=== PATIENT | female | born 1955 | race Caucasian/White ===

== ENCOUNTER 2020-02-24 20:49 | Inpatient (IN) | payer MEDICARE ==
[2020-02-24 21:24] LABS: #Eosinphils 0.1 thou/uL (0.0-0.7); #Lymphocytes 1.4 thou/uL (1.20-3.40); #Monocytes 0.5 thou/uL (0.11-0.59); %Basophils 0.3 % (0.0-1.0); %Eosinophils 1.8 % (0.0-10.0); %Lymphocytes 19.7 % (21.0-51.0); %Monocytes 6.6 % (0.0-10.0); %Neutrophils 71.5 % (42.0-75.0); Mean Corpuscular HGB CONC 33.8 g/dL (32.0-36.0); Mean Corpuscular Hemoglobin 28.7 pg (27.0-31.0); Mean Corpuscular Volume 85.1 fL (78.0-98.0); Mean Platelet Volume 8.3 fL (7.4-10.4); Platelet Count 151 thou/uL (130-400); RBC Distribution Width 12.5 % (11.5-14.5); Red Blood Cell (RBC) Count 4.89 mill/uL (4.20-5.40)
[2020-02-24 21:46] LABS: ALT (SGPT) 35 U/L (8-55); AST (SGOT) 41 U/L (5-34); Albumin 4.1 g/dL (3.4-4.8); Alkaline Phosphatase 101 U/L (40-110); Anion Gap 17 mmol/L (10-20); BUN (Urea Nitrogen) 13 mg/dL (9.8-20.1); Bilirubin, Total 0.8 mg/dL (0.2-1.2); Calc. Creatinine Clearance 0 mL/min (70-130); Calcium 9.4 mg/dL (7.8-10.44); Carbon Dioxide 19 mmol/L (23-31); Chloride 110 mmol/L (98-107); Globulin 3.9 g/dL (2.4-3.5); Glucose 167 mg/dL (80-115); Lipase 92 U/L (8-78); Potassium 4.4 mmol/L (3.5-5.1); Sodium 142 mmol/L (136-145)
[2020-02-24 22:03] LABS: Bacteria/HPF None Seen HPF (None Seen); Bilirubin Negative (Negative); Blood, Urine Negative (Negative); Clarity Clear (Clear); Glucose, Urine (Dipstick) Normal (Negative); Ketone, Urine Negative (Negative); Leukocyte 25 Leu/uL (Negative); Nitrite Negative (Negative); Protein, Urine (Dipstick) 10 mg/dL (Neg-Trace); RBC/HPF 0-3 HPF (0-3); Specific Gravity, Urine 1.023 (1.002-1.036); Squamous Epithelial 0-3 HPF (0-3); Urobilinogen Normal mg/dL (Less than 2); pH, Urine 5.5 (5.0-9.0)
[2020-02-25] MEDS ORDERED: Ondansetron PF 4 MG/2 ML Vial ONE (00:40)
[2020-02-25] MEDS ORDERED: Fentanyl 100 MCG/2 ML VIAL ONE ×2 (00:40→05:26)
[2020-02-25] MEDS ORDERED: Sucralfate 1 GM/10 ML UDCUP ONE (02:11)
[2020-02-25] MEDS ORDERED: Morphine 4 MG/ML VIAL ONE (03:36)
[2020-02-25 05:01] LABS: CO2 Tension 28.5 mmHg (35.0-45.0); O2 Tension (PaO2), arterial 422.8 mmHg (> 80.0); pH, Arterial 7.37 (7.35-7.45)
[2020-02-25 05:02] LABS: Actual Bicarbonate (HCO3a) 15.9 mEq/L (22-28); Base Excess (BEa) -7.9 mEq/L (-2.0 to +3.0); Carboxyhemoglobin (COHb) 0.3 gm% (0.0-3.0); Hemoglobin (Hb) 14.6 g/dL (12.0-16.0); Potassium - ABG Lab 3.23 mmol/L (3.70-5.30)
[2020-02-25 05:03] LABS: ALV-art Gradient 254.575 mmHg (0-20); Analyzer IN Cardio ER; Calcium, Ionized (arterial) 1.41 mmol/L (1.12-1.30); Puncture Site LRA
[2020-02-25 05:17] LABS: INR-International Normal Ratio 1.3; PTT 29.7 sec (22.9-36.1); Prothrombin Time 16.3 sec (12.0-14.7)
[2020-02-25] MEDS ORDERED: Midazolam HCl 2 mg/2 ml Vial ONE ×2 (05:26→05:37)
[2020-02-25 05:34] LABS: ALT (SGPT) 35 U/L (8-55); AST (SGOT) 45 U/L (5-34); Albumin 3.6 g/dL (3.4-4.8); Alkaline Phosphatase 101 U/L (40-110); Anion Gap 23 mmol/L (10-20); BUN (Urea Nitrogen) 16 mg/dL (9.8-20.1); CK (CPK) 90 U/L (29-168); Calc. Creatinine Clearance 0 mL/min (70-130); Calcium 10.9 mg/dL (7.8-10.44); Carbon Dioxide 15 mmol/L (23-31); Chloride 108 mmol/L (98-107); Globulin 3.6 g/dL (2.4-3.5); Glucose 238 mg/dL (80-115); Potassium 3.2 mmol/L (3.5-5.1); Protein, Total 7.2 g/dL (6.0-8.3); Sodium 143 mmol/L (136-145)
[2020-02-25] MEDS ORDERED: Metoprolol Tartrate 5 MG/5 ML VIAL ONE (05:43)
[2020-02-25] MEDS ORDERED: Nitroglycerin 100MG/250ML BOT 250 ML ONE (05:49)
[2020-02-25 06:04] LABS: Band 10 % (5-11); Eosinophils 2 % (0-10); Hemoglobin 13.8 g/dL (12.0-16.0); Lymphocytes 39 % (21-51); MDiff Complete? YES; Mean Corpuscular HGB CONC 33.6 g/dL (32.0-36.0); Mean Corpuscular Volume 86.1 fL (78.0-98.0); Mean Platelet Volume 8.8 fL (7.4-10.4); Monocytes 10 % (0-10); Neutrophil 39 % (42-75); Platelet Count 247 thou/uL (130-400); RBC Distribution Width 12.8 % (11.5-14.5); Red Blood Cell (RBC) Count 4.75 mill/uL (4.20-5.40); White Blood Cell (WBC) Count 17.4 thou/uL (4.8-10.8)
[2020-02-25] MEDS ORDERED: Propofol 500 MG/50 ML VIAL ONE (08:43)
[2020-02-25] MEDS ORDERED: Propofol 1,000 MG/100 ML VIAL IV ONE (08:44)
[2020-02-25 08:51] LABS: Actual Bicarbonate (HCO3a) 18.4 mEq/L (22-28); Base Excess (BEa) -4.2 mEq/L (-2.0 to +3.0); CO2 Tension 27.3 mmHg (35.0-45.0); Calcium, Ionized (arterial) 1.17 mmol/L (1.12-1.30); Carboxyhemoglobin (COHb) 0.5 gm% (0.0-3.0); O2 Tension (PaO2), arterial 115.6 mmHg (> 80.0); pH, Arterial 7.45 (7.35-7.45)
[2020-02-25 09:22] LABS: CKMB 7.6 ng/mL (0-6.6)
[2020-02-25 10:06] LABS: ALV-art Gradient 135.475 mmHg (0-20); Puncture Site Arterial Line
[2020-02-25] MEDS ORDERED: Iopamidol 370 76% 100 ML VIAL ONE (10:23)
[2020-02-25] MEDS ORDERED: Iopamidol-370 76% 500 ML 1 ML ONE (10:54)
[2020-02-25] MEDS: Lorazepam 2 MG/ML VIAL SLOW IVP PRN ×5 (11:34→21:53)
[2020-02-25] MEDS ORDERED: Vecuronium 10 MG VIAL ONE (11:54)
[2020-02-25] MEDS: Morphine 2 MG/ML VIAL SLOW IVP PRN (11:55)
[2020-02-25] MEDS ORDERED: Fentanyl BOLUS 250 ML IVPB PRN (12:00)
[2020-02-25] MEDS ORDERED: DISCONTINUE PREVIOUS NARCOTIC PAIN MEDICATIONS AND BENZODIAZEPINES FS SCH (12:00)
[2020-02-25] MEDS ORDERED: Fentanyl CADD 100 ML IV SCH (12:00)
[2020-02-25] MEDS ORDERED: Propofol BOLUS 1,000 MG/100 ML VIAL IV PRN (12:00)
[2020-02-25] MEDS: niCARdipine 25 MG in Sodium Chloride 0.9% 250 ML 240 ML IVPB SCH ×2 (12:19→18:05)
[2020-02-25] MEDS ORDERED: Heparin 10,000 UNITS/ 10 ML VIAL ONE (12:40)
[2020-02-25] MEDS ORDERED: Calcium Chloride 1 GM/10 ML Abboject SYRINGE ONE (13:14)
[2020-02-25] MEDS ORDERED: Naloxone HCl 0.4 mg/ml Vial ONE (13:14)
[2020-02-25] MEDS ORDERED: EPINEPHrine 1 MG/10 ML Abboject SYRINGE ONE (13:14)
[2020-02-25] MEDS ORDERED: Sodium Bicarb 50 MEQ/50 ML Abboject 8.4% SYRINGE ONE (13:14)
[2020-02-25 13:18] LABS: Amphetamine Not Detected (NotDetected); Barbiturates Screen Not Detected (NotDetected); Benzodiazepine Screen Not Detected (NotDetected); Cocaine Metabolite Screen Not Detected (NotDetected); Medtox Control Line Valid? VALID (VALID); Medtox Reader # READER 4; Methadone Not Detected (NotDetected); Methamphetamine Not Detected (NotDetected); Opiate Screen Detected (NotDetected); Oxycodone Screen Detected (NotDetected); Phencyclidine (PCP) Not Detected (NotDetected); THC/Cannabinoid Screen Not Detected (NotDetected); Tricyclic Screen Detected (NotDetected)
[2020-02-25 13:27] VITALS: BMI 22.2
[2020-02-25] MEDS: Propofol 1,000 MG/100 ML VIAL IV PRN ×2 (14:17→21:49)
[2020-02-25] MEDS: Vecuronium 10 MG VIAL IV PRN ×3 (15:55→21:53)
[2020-02-25 15:58] LABS: SARS-CoV-2 PCR by NAA Not Detected (NotDetected)
[2020-02-25] MEDS ORDERED: Enoxaparin Sodium 40 MG/0.4 ML SYRINGE SC SCH (17:00)
[2020-02-25] MEDS ORDERED: Famotidine/PF 20 mg/2ml Vial SLOW IVP SCH ×2 (17:00→21:00)
[2020-02-25] MEDS: Piperacillin/Tazobactam 3.375 GM in Sodium Chloride 0.9% 100 ML IVPB SCH (17:30)
[2020-02-25 18:10] LABS: #Basophils 0.1 thou/uL (0.0-0.2); #Lymphocytes 1.5 thou/uL (1.20-3.40); #Monocytes 0.8 thou/uL (0.11-0.59); #Neutrophils 12.8 thou/uL (1.40-6.50); %Basophils 0.4 % (0.0-1.0); %Eosinophils 0.1 % (0.0-10.0); %Lymphocytes 9.6 % (21.0-51.0); %Monocytes 5.2 % (0.0-10.0); %Neutrophils 84.7 % (42.0-75.0); Hemoglobin 14.3 g/dL (12.0-16.0); Mean Corpuscular HGB CONC 33.8 g/dL (32.0-36.0); Mean Corpuscular Hemoglobin 28.7 pg (27.0-31.0); Mean Corpuscular Volume 84.9 fL (78.0-98.0); Mean Platelet Volume 8.5 fL (7.4-10.4); Platelet Count 196 thou/uL (130-400); RBC Distribution Width 12.9 % (11.5-14.5); Red Blood Cell (RBC) Count 4.99 mill/uL (4.20-5.40); White Blood Cell (WBC) Count 15.2 thou/uL (4.8-10.8)
[2020-02-25 18:16] LABS: INR-International Normal Ratio 1.2; PTT 32.6 sec (22.9-36.1); Prothrombin Time 15.2 sec (12.0-14.7)
[2020-02-25 18:40] LABS: Anion Gap 19 mmol/L (10-20); BUN (Urea Nitrogen) 15 mg/dL (9.8-20.1); Calc. Creatinine Clearance 46 mL/min (70-130); Calcium 9.1 mg/dL (7.8-10.44); Carbon Dioxide 16 mmol/L (23-31); Chloride 108 mmol/L (98-107); Glucose 262 mg/dL (80-115); Lactic Acid 4.7 mmol/L (0.5-2.2); Magnesium 1.7 mg/dL (1.6-2.6); Potassium 3.8 mmol/L (3.5-5.1); Sodium 139 mmol/L (136-145)
[2020-02-25] MEDS ORDERED: Sodium Chloride 0.9% 500 ML IV SCH (18:45)
[2020-02-25 19:26] LABS: CKMB 15.6 ng/mL (0-6.6)
[2020-02-25 22:41] LABS: Lactic Acid 2.8 mmol/L (0.5-2.2)
[2020-02-26] MEDS: Piperacillin/Tazobactam 3.375 GM in Sodium Chloride 0.9% 100 ML IVPB SCH ×3 (01:04→17:30)
[2020-02-26] MEDS: niCARdipine 25 MG in Sodium Chloride 0.9% 250 ML 240 ML IVPB SCH (01:04)
[2020-02-26 01:27] LABS: Hemoglobin 14.5 g/dL (12.0-16.0); Mean Corpuscular HGB CONC 34.6 g/dL (32.0-36.0); Mean Corpuscular Hemoglobin 29.2 pg (27.0-31.0); Mean Corpuscular Volume 84.2 fL (78.0-98.0); Mean Platelet Volume 7.9 fL (7.4-10.4); Platelet Count 262 thou/uL (130-400); RBC Distribution Width 12.8 % (11.5-14.5); Red Blood Cell (RBC) Count 4.95 mill/uL (4.20-5.40); White Blood Cell (WBC) Count 20.4 thou/uL (4.8-10.8)
[2020-02-26 01:31] LABS: INR-International Normal Ratio 1.2; Prothrombin Time 15.2 sec (12.0-14.7)
[2020-02-26 01:44] LABS: Anion Gap 16 mmol/L (10-20); BUN (Urea Nitrogen) 14 mg/dL (9.8-20.1); Calc. Creatinine Clearance 53 mL/min (70-130); Calcium 8.8 mg/dL (7.8-10.44); Carbon Dioxide 20 mmol/L (23-31); Chloride 109 mmol/L (98-107); Glucose 213 mg/dL (80-115); Magnesium 1.7 mg/dL (1.6-2.6); Potassium 3.3 mmol/L (3.5-5.1); Sodium 142 mmol/L (136-145)
[2020-02-26 02:02] LABS: Critical Call Chem Troponin I RESULT DECREASING
[2020-02-26 02:24] LABS: CKMB 21.4 ng/mL (0-6.6)
[2020-02-26 02:33] LABS: Band 9 % (5-11); Lymphocytes 12 % (21-51); MDiff Complete? YES; Monocytes 13 % (0-10); Neutrophil 66 % (42-75)
[2020-02-26] MEDS: Vecuronium 10 MG VIAL IV PRN (03:01)
[2020-02-26] MEDS: Lorazepam 2 MG/ML VIAL SLOW IVP PRN ×2 (03:01→15:33)
[2020-02-26] MEDS: Propofol 1,000 MG/100 ML VIAL IV PRN ×3 (05:52→23:25)
[2020-02-26 06:53] LABS: Actual Bicarbonate (HCO3a) 20.1 mEq/L (22-28); Base Excess (BEa) -3.6 mEq/L (-2.0 to +3.0); CO2 Tension 32.8 mmHg (35.0-45.0); Calcium, Ionized (arterial) 1.15 mmol/L (1.12-1.30); Carboxyhemoglobin (COHb) 0.9 gm% (0.0-3.0); Hemoglobin (Hb) 14.9 g/dL (12.0-16.0); O2 Tension (PaO2), arterial 74.6 mmHg (> 80.0); Potassium - ABG Lab 3.27 mmol/L (3.70-5.30); pH, Arterial 7.41 (7.35-7.45)
[2020-02-26 06:59] LABS: Puncture Site Arterial Line
[2020-02-26] MEDS ORDERED: Enoxaparin Sodium 40 MG/0.4 ML SYRINGE SC SCH (09:00)
[2020-02-26] MEDS: Enoxaparin Sodium 40 MG/0.4 ML SYRINGE SC SCH (09:09)
[2020-02-26] MEDS: Famotidine/PF 20 mg/2ml Vial SLOW IVP SCH ×2 (09:09→22:38)
[2020-02-26 09:37] LABS: #Basophils 0.1 thou/uL (0.0-0.2); #Eosinphils 0.1 thou/uL (0.0-0.7); #Lymphocytes 1.7 thou/uL (1.20-3.40); #Monocytes 1.2 thou/uL (0.11-0.59); #Neutrophils 12.5 thou/uL (1.40-6.50); %Basophils 0.5 % (0.0-1.0); %Eosinophils 0.5 % (0.0-10.0); %Monocytes 7.5 % (0.0-10.0); %Neutrophils 80.5 % (42.0-75.0); Hemoglobin 14.6 g/dL (12.0-16.0); Mean Corpuscular HGB CONC 33.7 g/dL (32.0-36.0); Mean Corpuscular Hemoglobin 28.4 pg (27.0-31.0); Mean Corpuscular Volume 84.3 fL (78.0-98.0); Platelet Count 199 thou/uL (130-400); RBC Distribution Width 12.8 % (11.5-14.5); Red Blood Cell (RBC) Count 5.13 mill/uL (4.20-5.40); White Blood Cell (WBC) Count 15.6 thou/uL (4.8-10.8)
[2020-02-26 09:54] LABS: Anion Gap 16 mmol/L (10-20); BUN (Urea Nitrogen) 14 mg/dL (9.8-20.1); Calc. Creatinine Clearance 57 mL/min (70-130); Calcium 8.8 mg/dL (7.8-10.44); Carbon Dioxide 19 mmol/L (23-31); Chloride 110 mmol/L (98-107); Glucose 193 mg/dL (80-115); Potassium 3.4 mmol/L (3.5-5.1); Sodium 142 mmol/L (136-145)
[2020-02-26] MEDS: Sodium Chloride 0.9% 1,000 ML IV SCH ×2 (10:00→22:36)
[2020-02-26 13:04] LABS: #Lymphocytes 1.7 thou/uL (1.20-3.40); #Monocytes 1.4 thou/uL (0.11-0.59); #Neutrophils 15.6 thou/uL (1.40-6.50); %Basophils 0.2 % (0.0-1.0); %Eosinophils 0.2 % (0.0-10.0); %Lymphocytes 8.9 % (21.0-51.0); %Monocytes 7.4 % (0.0-10.0); %Neutrophils 83.3 % (42.0-75.0); Hemoglobin 14.2 g/dL (12.0-16.0); Mean Corpuscular HGB CONC 34.3 g/dL (32.0-36.0); Mean Corpuscular Hemoglobin 28.7 pg (27.0-31.0); Mean Corpuscular Volume 83.8 fL (78.0-98.0); Mean Platelet Volume 7.9 fL (7.4-10.4); Platelet Count 243 thou/uL (130-400); RBC Distribution Width 12.9 % (11.5-14.5); Red Blood Cell (RBC) Count 4.93 mill/uL (4.20-5.40); White Blood Cell (WBC) Count 18.7 thou/uL (4.8-10.8)
[2020-02-26 13:26] LABS: Anion Gap 19 mmol/L (10-20); BUN (Urea Nitrogen) 12 mg/dL (9.8-20.1); Calc. Creatinine Clearance 53 mL/min (70-130); Calcium 8.5 mg/dL (7.8-10.44); Carbon Dioxide 18 mmol/L (23-31); Chloride 110 mmol/L (98-107); Glucose 163 mg/dL (80-115); Potassium 3.7 mmol/L (3.5-5.1); Sodium 143 mmol/L (136-145)
[2020-02-26 13:53] LABS: CKMB 22.6 ng/mL (0-6.6)
[2020-02-26] MEDS ORDERED: Amlodipine 10 MG TAB PO SCH (16:15)
[2020-02-26] MEDS: Vancomycin 1 GM in Premix Bag 1 BAG IVPB SCH (18:02)
[2020-02-27] MEDS: Piperacillin/Tazobactam 3.375 GM in Sodium Chloride 0.9% 100 ML IVPB SCH ×3 (01:41→17:18)
[2020-02-27 04:36] LABS: #Basophils 0.1 thou/uL (0.0-0.2); #Lymphocytes 2.2 thou/uL (1.20-3.40); #Monocytes 1.4 thou/uL (0.11-0.59); #Neutrophils 12.4 thou/uL (1.40-6.50); %Basophils 0.5 % (0.0-1.0); %Eosinophils 0.2 % (0.0-10.0); %Lymphocytes 13.8 % (21.0-51.0); %Monocytes 8.9 % (0.0-10.0); %Neutrophils 76.5 % (42.0-75.0); Mean Corpuscular HGB CONC 33.7 g/dL (32.0-36.0); Mean Corpuscular Hemoglobin 28.6 pg (27.0-31.0); Mean Corpuscular Volume 84.7 fL (78.0-98.0); Mean Platelet Volume 8.3 fL (7.4-10.4); Platelet Count 185 thou/uL (130-400); RBC Distribution Width 13.3 % (11.5-14.5); Red Blood Cell (RBC) Count 4.56 mill/uL (4.20-5.40); White Blood Cell (WBC) Count 16.2 thou/uL (4.8-10.8)
[2020-02-27] MEDS: Vancomycin 1 GM in Premix Bag 1 BAG IVPB SCH ×2 (06:46→18:13)
[2020-02-27] MEDS: Enoxaparin Sodium 40 MG/0.4 ML SYRINGE SC SCH (08:37)
[2020-02-27] MEDS: Famotidine/PF 20 mg/2ml Vial SLOW IVP SCH ×2 (08:37→20:36)
[2020-02-27] MEDS ORDERED: Amlodipine 10 MG TAB PO SCH (09:00)
[2020-02-27] MEDS: Propofol 1,000 MG/100 ML VIAL IV PRN (09:15)
[2020-02-27] MEDS ORDERED: Ibuprofen 600 MG TAB PER TUBE PRN (09:49)
[2020-02-27 10:02] LABS: Anion Gap 14 mmol/L (10-20); BUN (Urea Nitrogen) 15 mg/dL (9.8-20.1); Calc. Creatinine Clearance 53 mL/min (70-130); Carbon Dioxide 23 mmol/L (23-31); Chloride 110 mmol/L (98-107); Glucose 146 mg/dL (80-115); Potassium 3.8 mmol/L (3.5-5.1); Sodium 143 mmol/L (136-145)
[2020-02-27] MEDS: Sodium Chloride 0.9% 1,000 ML IV SCH ×2 (11:05→21:54)
[2020-02-27] MEDS: Labetalol HCl 100 MG/20 ML VIAL SLOW IVP PRN (20:35)
[2020-02-28] MEDS: Labetalol HCl 100 MG/20 ML VIAL SLOW IVP PRN (00:43)
[2020-02-28] MEDS: Piperacillin/Tazobactam 3.375 GM in Sodium Chloride 0.9% 100 ML IVPB SCH ×3 (00:47→16:27)
[2020-02-28] MEDS: Propofol 1,000 MG/100 ML VIAL IV PRN ×2 (01:51→18:44)
[2020-02-28 04:14] LABS: #Eosinphils 0.1 thou/uL (0.0-0.7); #Lymphocytes 2.1 thou/uL (1.20-3.40); #Monocytes 0.9 thou/uL (0.11-0.59); #Neutrophils 6.8 thou/uL (1.40-6.50); %Basophils 0.2 % (0.0-1.0); %Eosinophils 0.5 % (0.0-10.0); %Lymphocytes 21.4 % (21.0-51.0); %Monocytes 8.7 % (0.0-10.0); %Neutrophils 69.1 % (42.0-75.0); Hemoglobin 11.4 g/dL (12.0-16.0); Mean Corpuscular HGB CONC 33.7 g/dL (32.0-36.0); Mean Corpuscular Hemoglobin 28.6 pg (27.0-31.0); Mean Corpuscular Volume 84.9 fL (78.0-98.0); Mean Platelet Volume 8.4 fL (7.4-10.4); Platelet Count 124 thou/uL (130-400); RBC Distribution Width 12.9 % (11.5-14.5); White Blood Cell (WBC) Count 9.8 thou/uL (4.8-10.8)
[2020-02-28 05:36] LABS: Anion Gap 15 mmol/L (10-20); BUN (Urea Nitrogen) 16 mg/dL (9.8-20.1); Calc. Creatinine Clearance 58 mL/min (70-130); Calcium 8.3 mg/dL (7.8-10.44); Carbon Dioxide 22 mmol/L (23-31); Glucose 137 mg/dL (80-115); Potassium 3.7 mmol/L (3.5-5.1)
[2020-02-28 06:04] LABS: Chloride 109 mmol/L (98-107); Sodium 142 mmol/L (136-145)
[2020-02-28] MEDS: Vancomycin 1 GM in Premix Bag 1 BAG IVPB SCH ×2 (06:26→18:44)
[2020-02-28] MEDS: Enoxaparin Sodium 40 MG/0.4 ML SYRINGE SC SCH (09:14)
[2020-02-28] MEDS: Famotidine/PF 20 mg/2ml Vial SLOW IVP SCH ×2 (09:14→20:59)
[2020-02-28] MEDS: NIFEdipine XL 60 MG TAB PO SCH (09:14)
[2020-02-28] MEDS: Sodium Chloride 0.9% 1,000 ML IV SCH (15:02)
[2020-02-28 17:31] LABS: Vancomycin, Trough 16.6 ug/mL
[2020-02-28] MEDS: Morphine 2 MG/ML VIAL SLOW IVP PRN (23:35)
[2020-02-29] MEDS: Propofol 1,000 MG/100 ML VIAL IV PRN (01:03)
[2020-02-29] MEDS: Piperacillin/Tazobactam 3.375 GM in Sodium Chloride 0.9% 100 ML IVPB SCH ×3 (01:03→16:43)
[2020-02-29 04:29] LABS: #Basophils 0.1 thou/uL (0.0-0.2); #Eosinphils 0.1 thou/uL (0.0-0.7); #Lymphocytes 1.8 thou/uL (1.20-3.40); #Monocytes 0.7 thou/uL (0.11-0.59); #Neutrophils 6.7 thou/uL (1.40-6.50); %Basophils 0.6 % (0.0-1.0); %Eosinophils 1.1 % (0.0-10.0); %Lymphocytes 19.4 % (21.0-51.0); %Monocytes 7.9 % (0.0-10.0); Hemoglobin 11.5 g/dL (12.0-16.0); Mean Corpuscular Hemoglobin 27.2 pg (27.0-31.0); Mean Platelet Volume 8.3 fL (7.4-10.4); Platelet Count 127 thou/uL (130-400); RBC Distribution Width 12.8 % (11.5-14.5); Red Blood Cell (RBC) Count 4.24 mill/uL (4.20-5.40); White Blood Cell (WBC) Count 9.4 thou/uL (4.8-10.8)
[2020-02-29 05:28] LABS: Anion Gap 14 mmol/L (10-20); BUN (Urea Nitrogen) 17 mg/dL (9.8-20.1); Calc. Creatinine Clearance 66 mL/min (70-130); Calcium 8.7 mg/dL (7.8-10.44); Carbon Dioxide 22 mmol/L (23-31); Chloride 110 mmol/L (98-107); Glucose 103 mg/dL (80-115); Potassium 3.3 mmol/L (3.5-5.1); Sodium 143 mmol/L (136-145)
[2020-02-29] MEDS: Vancomycin 1 GM in Premix Bag 1 BAG IVPB SCH ×2 (05:36→17:31)
[2020-02-29] MEDS: Sodium Chloride 0.9% 1,000 ML IV SCH ×2 (06:20→23:23)
[2020-02-29] MEDS: Famotidine/PF 20 mg/2ml Vial SLOW IVP SCH (09:06)
[2020-02-29] MEDS: Enoxaparin Sodium 40 MG/0.4 ML SYRINGE SC SCH (09:06)
[2020-02-29] MEDS: NIFEdipine XL 60 MG TAB PO SCH (12:16)
[2020-02-29] MEDS: Famotidine 20 MG TAB PO SCH (20:57)
[2020-03-01] MEDS: Piperacillin/Tazobactam 3.375 GM in Sodium Chloride 0.9% 100 ML IVPB SCH ×3 (01:51→16:35)
[2020-03-01] MEDS: Sodium Chloride 0.9% 1,000 ML IV SCH ×2 (03:24→09:50)
[2020-03-01 04:28] LABS: Anion Gap 14 mmol/L (10-20); BUN (Urea Nitrogen) 17 mg/dL (9.8-20.1); Calc. Creatinine Clearance 73 mL/min (70-130); Carbon Dioxide 23 mmol/L (23-31); Chloride 109 mmol/L (98-107); Glucose 124 mg/dL (80-115); Potassium 3.2 mmol/L (3.5-5.1); Sodium 143 mmol/L (136-145)
[2020-03-01] MEDS: Vancomycin 1 GM in Premix Bag 1 BAG IVPB SCH ×3 (06:05→19:23)
[2020-03-01] MEDS ORDERED: Electrolyte Replacement Protocol 1 EACH FS SCH (09:00)
[2020-03-01] MEDS ORDERED: Potassium Chloride 20 MEQ TAB PO SCH (09:00)
[2020-03-01] MEDS ORDERED: Electrolyte Replacement Protocol FS PRN (09:15)
[2020-03-01] MEDS: Enoxaparin Sodium 40 MG/0.4 ML SYRINGE SC SCH (09:27)
[2020-03-01] MEDS: Famotidine 20 MG TAB PO SCH ×2 (09:27→20:37)
[2020-03-01] MEDS: NIFEdipine XL 60 MG TAB PO SCH (09:27)
[2020-03-01] MEDS ORDERED: Lisinopril 10 MG TAB PO SCH (12:30)
[2020-03-02] MEDS: Piperacillin/Tazobactam 3.375 GM in Sodium Chloride 0.9% 100 ML IVPB SCH ×4 (00:10→23:46)
[2020-03-02] MEDS: Vancomycin 1 GM in Premix Bag 1 BAG IVPB SCH ×2 (04:25→19:13)
[2020-03-02 05:03] LABS: #Eosinphils 0.2 thou/uL (0.0-0.7); #Lymphocytes 1.5 thou/uL (1.20-3.40); #Monocytes 0.9 thou/uL (0.11-0.59); #Neutrophils 4.4 thou/uL (1.40-6.50); %Basophils 0.6 % (0.0-1.0); %Eosinophils 2.5 % (0.0-10.0); %Lymphocytes 20.9 % (21.0-51.0); %Monocytes 13.4 % (0.0-10.0); %Neutrophils 62.6 % (42.0-75.0); Mean Corpuscular HGB CONC 32.4 g/dL (32.0-36.0); Mean Corpuscular Hemoglobin 27.4 pg (27.0-31.0); Mean Corpuscular Volume 84.7 fL (78.0-98.0); Mean Platelet Volume 8.6 fL (7.4-10.4); Platelet Count 163 thou/uL (130-400); RBC Distribution Width 12.9 % (11.5-14.5); Red Blood Cell (RBC) Count 4.39 mill/uL (4.20-5.40)
[2020-03-02 05:29] LABS: Anion Gap 14 mmol/L (10-20); BUN (Urea Nitrogen) 16 mg/dL (9.8-20.1); Calc. Creatinine Clearance 75 mL/min (70-130); Calcium 9.2 mg/dL (7.8-10.44); Carbon Dioxide 22 mmol/L (23-31); Chloride 108 mmol/L (98-107); Glucose 115 mg/dL (80-115); Potassium 3.4 mmol/L (3.5-5.1); Sodium 141 mmol/L (136-145)
[2020-03-02] MEDS ORDERED: Potassium Chloride 20 MEQ TAB PO SCH (06:45)
[2020-03-02] MEDS ORDERED: CEFAZOLIN 1 GM VIAL ONE (09:26)
[2020-03-02] MEDS ORDERED: Gentamicin 80 MG/2 ML VIAL ONE (09:26)
[2020-03-02] MEDS ORDERED: Promethazine HCl 25 MG/ML VIAL SLOW IVP PRN (10:01)
[2020-03-02] MEDS ORDERED: Promethazine HCl 25 MG/ML VIAL IM PRN (10:01)
[2020-03-02] MEDS ORDERED: Ondansetron HCl/PF 4 MG/2 ML Vial IVP PRN (10:01)
[2020-03-02] MEDS ORDERED: Propofol 1,000 MG/100 ML VIAL IV ONE (10:03)
[2020-03-02] MEDS ORDERED: PROPOFOL 200 MG/20 ML VIAL ONE (10:11)
[2020-03-02] MEDS ORDERED: Lidocaine 1% PF 5 ML VIAL ONE (10:11)
[2020-03-02] MEDS ORDERED: Acetaminophen/Codeine 30-300mg Tablet PO PRN ×2 (12:15)
[2020-03-02] MEDS: NIFEdipine XL 60 MG TAB PO SCH (12:16)
[2020-03-02] MEDS: Famotidine 20 MG TAB PO SCH ×2 (12:17→21:12)
[2020-03-02] MEDS: Lisinopril 10 MG TAB PO SCH (12:17)
[2020-03-02] MEDS ORDERED: Iopamidol 370 76% 50 ML VIAL FS ONE (14:50)
[2020-03-02] MEDS ORDERED: Lorazepam 2 MG/ML VIAL SLOW IVP SCH ×2 (15:45→21:00)
[2020-03-02 17:32] LABS: Vancomycin, Trough 17.8 ug/mL
[2020-03-03 05:02] LABS: Anion Gap 16 mmol/L (10-20); BUN (Urea Nitrogen) 16 mg/dL (9.8-20.1); Calc. Creatinine Clearance 75 mL/min (70-130); Calcium 9.1 mg/dL (7.8-10.44); Carbon Dioxide 22 mmol/L (23-31); Chloride 108 mmol/L (98-107); Glucose 116 mg/dL (80-115); Potassium 4.2 mmol/L (3.5-5.1); Sodium 142 mmol/L (136-145)
[2020-03-03] MEDS: Vancomycin 1 GM in Premix Bag 1 BAG IVPB SCH (05:42)
[2020-03-03] MEDS ORDERED: QUETIAPINE FUMARATE 400 MG PO SCH (09:00)
[2020-03-03] MEDS: Piperacillin/Tazobactam 3.375 GM in Sodium Chloride 0.9% 100 ML IVPB SCH (09:24)
[2020-03-03] MEDS: NIFEdipine XL 60 MG TAB PO SCH (09:26)
[2020-03-03] MEDS: Lisinopril 10 MG TAB PO SCH (09:27)
[2020-03-03] MEDS: Famotidine 20 MG TAB PO SCH ×2 (09:28→20:35)
[2020-03-03] MEDS ORDERED: Clindamycin 150 MG CAP PO SCH (11:45)
[2020-03-03] MEDS: HYDROcodone/Acetaminophen 10/325 mg Tablet PO PRN (16:39)
[2020-03-03] MEDS: Doxycycline 100 MG CAP PO SCH (20:35)
[2020-03-03] MEDS: Cefdinir 300 MG CAP PO SCH (20:35)
[2020-03-04 05:43] LABS: Anion Gap 18 mmol/L (10-20); BUN (Urea Nitrogen) 35 mg/dL (9.8-20.1); Calc. Creatinine Clearance 29 mL/min (70-130); Calcium 9.3 mg/dL (7.8-10.44); Carbon Dioxide 14 mmol/L (23-31); Chloride 110 mmol/L (98-107); Glucose 115 mg/dL (80-115); Potassium 4.3 mmol/L (3.5-5.1); Sodium 138 mmol/L (136-145)
[2020-03-04] MEDS: Cefdinir 300 MG CAP PO SCH ×2 (08:13→20:09)
[2020-03-04] MEDS: Famotidine 20 MG TAB PO SCH (08:14)
[2020-03-04] MEDS: Mirtazapine 15 MG TAB PO SCH (08:14)
[2020-03-04] MEDS: NIFEdipine XL 60 MG TAB PO SCH (08:14)
[2020-03-04] MEDS: Doxycycline 100 MG CAP PO SCH ×2 (08:16→20:09)
[2020-03-04] MEDS: Lisinopril 10 MG TAB PO SCH (08:16)
[2020-03-04 12:34] LABS: Anion Gap 16 mmol/L (10-20); BUN (Urea Nitrogen) 37 mg/dL (9.8-20.1); Calc. Creatinine Clearance 26 mL/min (70-130); Calcium 9.2 mg/dL (7.8-10.44); Carbon Dioxide 19 mmol/L (23-31); Chloride 106 mmol/L (98-107); Glucose 153 mg/dL (80-115); Potassium 3.5 mmol/L (3.5-5.1); Sodium 137 mmol/L (136-145)
[2020-03-04] MEDS ORDERED: Potassium Chloride 20 MEQ TAB PO SCH (14:00)
[2020-03-04] MEDS: Heparin 5,000 UNITS/ML VIAL SC SCH ×2 (14:16→20:11)
[2020-03-04 16:53] LABS: Bilirubin Negative (Negative); Blood, Urine Negative (Negative); Clarity Clear (Clear); Glucose, Urine (Dipstick) Normal (Negative); Ketone, Urine Negative (Negative); Leukocyte Negative Leu/uL (Negative); Nitrite Negative (Negative); Protein, Urine (Dipstick) 20 mg/dL (Neg-Trace); RBC/HPF 0-3 HPF (0-3); Specific Gravity, Urine 1.015 (1.002-1.036); Urobilinogen Normal mg/dL (Less than 2); WBC/HPF 0-3 HPF (0-3); Yeast-Budding 2+ HPF (None Seen); pH, Urine 5.5 (5.0-9.0)
[2020-03-04 16:55] LABS: Bacteria/HPF 1+ HPF (None Seen); Urine Culture Reflex No No
[2020-03-04 17:08] LABS: Creatinine, Urine 78.03 mg/dL (47-110)
[2020-03-04] MEDS: Sodium Bicarbonate Tab 325 MG TAB PO SCH (20:10)
[2020-03-05 05:12] LABS: Albumin 3.4 g/dL (3.4-4.8); Phosphorus 4.3 mg/dL (2.3-4.7)
[2020-03-05 05:13] LABS: Anion Gap 17 mmol/L (10-20); BUN (Urea Nitrogen) 37 mg/dL (9.8-20.1); Calc. Creatinine Clearance 22 mL/min (70-130); Carbon Dioxide 19 mmol/L (23-31); Chloride 109 mmol/L (98-107); Glucose 107 mg/dL (80-115); Magnesium 2.1 mg/dL (1.6-2.6); Potassium 4.4 mmol/L (3.5-5.1); Sodium 141 mmol/L (136-145)
[2020-03-05] MEDS: Doxycycline 100 MG CAP PO SCH ×2 (09:11→20:56)
[2020-03-05] MEDS: Cefdinir 300 MG CAP PO SCH (09:11)
[2020-03-05] MEDS: NIFEdipine XL 60 MG TAB PO SCH (09:14)
[2020-03-05] MEDS: Mirtazapine 15 MG TAB PO SCH (09:15)
[2020-03-05] MEDS: Sodium Bicarbonate Tab 325 MG TAB PO SCH ×3 (09:16→20:57)
[2020-03-05] MEDS: Heparin 5,000 UNITS/ML VIAL SC SCH ×3 (09:17→20:57)
[2020-03-05] MEDS ORDERED: Sodium Chloride 0.9% 1,000 ML IV SCH (09:30)
[2020-03-05] MEDS: HYDROcodone/Acetaminophen 10/325 mg Tablet PO PRN (13:01)
[2020-03-05] MEDS ORDERED: Sodium Bicarbonate 50 MEQ in Sodium Chloride 0.45% 1,000 ML IV SCH (15:30)
[2020-03-06 05:15] LABS: Anion Gap 17 mmol/L (10-20); BUN (Urea Nitrogen) 39 mg/dL (9.8-20.1); CK (CPK) 44 U/L (29-168); Calc. Creatinine Clearance 21 mL/min (70-130); Carbon Dioxide 20 mmol/L (23-31); Chloride 107 mmol/L (98-107); Glucose 105 mg/dL (80-115); Potassium 3.9 mmol/L (3.5-5.1); Sodium 140 mmol/L (136-145)
[2020-03-06] MEDS: NIFEdipine XL 60 MG TAB PO SCH (08:56)
[2020-03-06] MEDS: Doxycycline 100 MG CAP PO SCH ×2 (08:56→21:12)
[2020-03-06] MEDS: Mirtazapine 15 MG TAB PO SCH (08:56)
[2020-03-06] MEDS: Sodium Bicarbonate Tab 325 MG TAB PO SCH ×3 (08:56→21:11)
[2020-03-06] MEDS: Cefdinir 300 MG CAP PO SCH (08:57)
[2020-03-06] MEDS ORDERED: predniSONE 20 MG TAB PO SCH (09:45)
[2020-03-06 13:50] LABS: #Basophils 0.1 thou/uL (0.0-0.2); #Eosinphils 0.1 thou/uL (0.0-0.7); #Lymphocytes 0.6 thou/uL (1.20-3.40); #Monocytes 0.2 thou/uL (0.11-0.59); #Neutrophils 3.7 thou/uL (1.40-6.50); %Basophils 1.4 % (0.0-1.0); %Eosinophils 1.6 % (0.0-10.0); %Lymphocytes 12.2 % (21.0-51.0); %Monocytes 3.7 % (0.0-10.0); %Neutrophils 81.1 % (42.0-75.0); Hemoglobin 11.3 g/dL (12.0-16.0); Mean Corpuscular HGB CONC 32.9 g/dL (32.0-36.0); Mean Corpuscular Hemoglobin 28.1 pg (27.0-31.0); Mean Corpuscular Volume 85.6 fL (78.0-98.0); Mean Platelet Volume 8.9 fL (7.4-10.4); Platelet Count 122 thou/uL (130-400); RBC Distribution Width 12.8 % (11.5-14.5); Red Blood Cell (RBC) Count 4.02 mill/uL (4.20-5.40); White Blood Cell (WBC) Count 4.6 thou/uL (4.8-10.8)
[2020-03-06] MEDS: Heparin 5,000 UNITS/ML VIAL SC SCH ×2 (14:32→21:12)
[2020-03-07 04:42] LABS: Anion Gap 16 mmol/L (10-20); BUN (Urea Nitrogen) 45 mg/dL (9.8-20.1); Calc. Creatinine Clearance 21 mL/min (70-130); Carbon Dioxide 23 mmol/L (23-31); Chloride 104 mmol/L (98-107); Glucose 131 mg/dL (80-115); Potassium 4.3 mmol/L (3.5-5.1); Sodium 139 mmol/L (136-145)
[2020-03-07 04:45] LABS: Calcium 9.2 mg/dL (7.8-10.44)
[2020-03-07] MEDS ORDERED: predniSONE 20 MG TAB PO SCH (08:00)
[2020-03-07 08:21] VITALS: TEMP 98.5
[2020-03-07] MEDS: Doxycycline 100 MG CAP PO SCH (08:42)
[2020-03-07] MEDS: Mirtazapine 15 MG TAB PO SCH (08:42)
[2020-03-07] MEDS: Heparin 5,000 UNITS/ML VIAL SC SCH (08:42)
[2020-03-07] MEDS: Cefdinir 300 MG CAP PO SCH (08:42)
[2020-03-07 08:45] VITALS: BP 151/76
[2020-03-07] MEDS ORDERED: Sodium Bicarbonate Tab 325 MG TAB PO SCH (09:00)
[2020-03-07] MEDS ORDERED: NIFEdipine XL 60 MG TAB PO SCH (09:00)
[2020-03-07] MEDS ORDERED: NIFEdipine XL 30 MG TAB PO SCH (09:00)
== END 2020-03-07 11:05 | disposition home or self-care (01) | DRG 224 ==
LOC: ERS 20:49 → SDC/OP 02-25 05:09 → CCU 02-25 05:09 → 2NO 02-29 22:47
PROVIDERS: ADMIT Internal Medicine Cardiovascular Disease; ATTEND Internal Medicine
PROC: 5A12012 Performance of Cardiac Output, Single, Manual (ICD-10-PCS; principal; 2020-02-25)
PROC: 0BH17EZ Insertion of Endotracheal Airway into Trachea, Via Natural or Artificial Opening (ICD-10-PCS; 2020-02-25)
PROC: 5A1955Z Respiratory Ventilation, Greater than 96 Consecutive Hours (ICD-10-PCS; 2020-02-25)
PROC: 3E033XZ Introduction of Vasopressor into Peripheral Vein, Percutaneous Approach (ICD-10-PCS; 2020-02-25)
PROC: B2111ZZ Fluoroscopy of Multiple Coronary Arteries using Low Osmolar Contrast (ICD-10-PCS; 2020-02-25)
PROC: B2151ZZ Fluoroscopy of Left Heart using Low Osmolar Contrast (ICD-10-PCS; 2020-02-25)
PROC: 4A023N7 Measurement of Cardiac Sampling and Pressure, Left Heart, Percutaneous Approach (ICD-10-PCS; 2020-02-25)
PROC: 0JH608Z Insertion of Defibrillator Generator into Chest Subcutaneous Tissue and Fascia, Open Approach (ICD-10-PCS; 2020-03-02)
PROC: 02HK3KZ Insertion of Defibrillator Lead into Right Ventricle, Percutaneous Approach (ICD-10-PCS; 2020-03-02)
DX: I49.01 Ventricular fibrillation (principal); J96.01 Acute respiratory failure with hypoxia; J15.212 Pneumonia due to Methicillin resistant Staphylococcus aureus; N17.0 Acute kidney failure with tubular necrosis; G93.41 Metabolic encephalopathy; G93.1 Anoxic brain damage, not elsewhere classified; E87.2 Acidosis; I16.1 Hypertensive emergency; I46.2 Cardiac arrest due to underlying cardiac condition; I48.91 Unspecified atrial fibrillation; Z96.653 Presence of artificial knee joint, bilateral; F41.9 Anxiety disorder, unspecified; D72.829 Elevated white blood cell count, unspecified; G89.29 Other chronic pain; E66.9 Obesity, unspecified; N18.9 Chronic kidney disease, unspecified; I12.9 Hypertensive chronic kidney disease with stage 1 through stage 4 chronic kidney disease, or unspecified chronic kidney disease; Z51.5 Encounter for palliative care; F32.9 Major depressive disorder, single episode, unspecified; Z20.822 Contact with and (suspected) exposure to COVID-19; Z87.891 Personal history of nicotine dependence; Z88.1 Allergy status to other antibiotic agents; Z90.49 Acquired absence of other specified parts of digestive tract; Z90.710 Acquired absence of both cervix and uterus; Z88.8 Allergy status to other drugs, medicaments and biological substances; Z78.1 Physical restraint status; Z68.24 Body mass index [BMI] 24.0-24.9, adult; Z98.890 Other specified postprocedural states; Z79.899 Other long term (current) drug therapy; Z79.1 Long term (current) use of non-steroidal anti-inflammatories (NSAID); E87.6 Hypokalemia; J04.10 Acute tracheitis without obstruction; B95.62 Methicillin resistant Staphylococcus aureus infection as the cause of diseases classified elsewhere; E86.0 Dehydration; B96.20 Unspecified Escherichia coli [E. coli] as the cause of diseases classified elsewhere; N14.1 Nephropathy induced by other drugs, medicaments and biological substances; T36.8X5A Adverse effect of other systemic antibiotics, initial encounter; Y92.239 Unspecified place in hospital as the place of occurrence of the external cause
CPT/HCPCS: 31500; 33249; 36005; 36415; 36416; 36556; 36600; 36680; 51702; 70450; 71045; 71275; 74174; 75820; 76770; 76942; 80048; 80053; 80202; 80306; 81001; 81003; 81015; 82040; 82308; 82550; 82553; 82570; 82805; 83605; 83690; 83735; 84100; 84156; 84300; 84484; 84540; 85025; 85610; 85730; 86850; 86900; 86901; 87040; 87070; 87077; 87186; 87205; 87635; 89220; 92950; 93005; 93306; 93458; 93641; 94002; 94003; 94760; 96361; 96365; 96375; 96376; 99152; 99153; C1777; C1786; J0171; J0690; J1580; J1644; J1650; J2060; J2250; J2270; J2310; J2405; J2543; J2704; J3010; J3370; J3490; J7050; J7512; Q9967; S0028; U0003; U0005

== ENCOUNTER 2020-07-20 06:38 | Day surgery (SDC) | payer MEDICARE ==
[2020-07-19 13:17] VITALS: BMI 30.5
[2020-07-20] MEDS ORDERED: PROPOFOL 200 MG/20 ML VIAL ONE (08:29)
== END 2020-07-20 09:45 | disposition home or self-care (01) ==
LOC: SDC 06:38
PROVIDERS: ATTEND Internal Medicine
PROC: 0DBN8ZX Excision of Sigmoid Colon, Via Natural or Artificial Opening Endoscopic, Diagnostic (ICD-10-PCS; principal; 2020-07-20)
PROC: 0DBL8ZX Excision of Transverse Colon, Via Natural or Artificial Opening Endoscopic, Diagnostic (ICD-10-PCS; 2020-07-20)
DX: D12.3 Benign neoplasm of transverse colon (principal); K63.5 Polyp of colon; E66.3 Overweight; Z68.30 Body mass index [BMI] 30.0-30.9, adult; Z86.010 Personal history of colon polyps; Z79.899 Other long term (current) drug therapy; Z88.1 Allergy status to other antibiotic agents; Z88.5 Allergy status to narcotic agent; Z88.6 Allergy status to analgesic agent; Z95.810 Presence of automatic (implantable) cardiac defibrillator
CPT/HCPCS: 88305; J2704

== ENCOUNTER 2022-05-31 22:12 | Emergency (ER) | payer MEDICAID, MEDICARE, OTHER ==
[2022-06-01] MEDS ORDERED: Ipratropium/Albuterol 3 ML NEB ONE (02:55)
== END 2022-06-01 03:08 | disposition home or self-care (01) ==
LOC: ERS 22:12
DX: J06.9 Acute upper respiratory infection, unspecified (principal); I10 Essential (primary) hypertension; I48.91 Unspecified atrial fibrillation; E11.9 Type 2 diabetes mellitus without complications; Z87.891 Personal history of nicotine dependence; Z79.899 Other long term (current) drug therapy
CPT/HCPCS: 71045; J7620